=== PATIENT | male | born 1980 | race Caucasian/White ===

== ENCOUNTER 2025-01-12 13:02 | Emergency (ER) | payer SELFPAY ==
[~2025-01-12] VITALS: Ht 185.4 cm; Wt 104.0 kg
[2025-01-12 13:11] VITALS: BP 123/73; PULSE 95; RESP 16; TEMP 36.7; O2SAT 99
== END 2025-01-12 17:59 | disposition left against medical advice (07) ==
LOC: ER 13:26
DX: R20.0 Anesthesia of skin (principal); M79.602 Pain in left arm; Z53.21 Procedure and treatment not carried out due to patient leaving prior to being seen by health care provider

== ENCOUNTER 2025-01-12 20:53 | Emergency (ER) | payer SELFPAY ==
[~2025-01-12] VITALS: Ht 175.3 cm; Wt 118.0 kg
[2025-01-12 21:23] VITALS: O2SAT 96
[2025-01-12 23:27] LABS: BASOPHILS % 1.2 % (0.0-2.0); EOSINOPHILS % 3.9 % (0.0-5.0); HEMATOCRIT. 42.3 % (42.0-52.0); HEMOGLOBIN. 14.3 g/dL (14.0-18.0); LYMPHOCYTES % 29.7 % (20.0-50.0); MEAN PLATELET VOLUME 8.3 fl (7.4-10.4); MONOCYTES % 8.9 % (2.0-8.0); NEUTROPHILS % 56.3 % (40.0-76.0); PLATELET 278 x1000/uL (130-400); RED BLOOD CELL COUNT 4.76 mill/uL (4.7-6.1); RED CELL DISTRIBUTION WIDTH 12.9 % (11.6-14.6)
[2025-01-13 00:07] LABS: CREATININE 1.1 mg/dL (0.6-1.3); UREA NITROGEN BLOOD 7 mg/dL (9-23)
[2025-01-13 00:08] LABS: TROPONIN I HIGH SENSITIVITY < 4 ng/L (3.0-53)
[2025-01-13 01:54] LABS: TROPONIN I HIGH SENSITIVITY < 4 ng/L (3.0-53)
[2025-01-13 02:07] VITALS: BP 140/59; PULSE 74; RESP 12; TEMP 36.7; O2SAT 97
== END 2025-01-13 02:11 | disposition home or self-care (01) ==
LOC: ER 20:53 → CMPBEDREQ 01-14 09:40
DX: R20.0 Anesthesia of skin (principal); I10 Essential (primary) hypertension; I49.3 Ventricular premature depolarization; Z79.899 Other long term (current) drug therapy
CPT/HCPCS: 36415; 71045; 80048; 83880; 84484; 85025; 93005; 99285